=== PATIENT | male | born 1985 | race Caucasian/White ===

== ENCOUNTER 2021-03-21 22:01 | Emergency (ER) | payer MEDICAID ==
[~2021-03-21] VITALS: Ht 182.9 cm; Wt 99.8 kg
[2021-03-21 22:20] VITALS: BP_SYST 140
[2021-03-22] MEDS ORDERED: LIDOCAINE/EPI 1% 1:100000 20 ML VIAL INJ ONE (00:33)
[2021-03-22] MEDS ORDERED: CEFAZOLIN 2 GM IVPB PREMIX 50 ML IV ONE (01:00)
--- NOTE | 2021-03-22 01:00 | NUR ---
Patient is in ER bed 2.
--- NOTE | 2021-03-22 01:05 | NUR ---
Patient stated that he fell on glass and had laceration on his left lower leg. Patient stated that he is in 5/10 pain.
--- NOTE | 2021-03-22 01:25 | NUR ---
MD Brown in to see patient. Performed wound care.
--- NOTE | 2021-03-22 01:30 | NUR ---
# 20 gauge angiocath placed to RAC. Use of asceptic technique. Opsite placed over site. Blood return noted. Blood for lab drawn from site. Flushed with 10 cc of normal saline. No evidence of infiltration noted. Patient tolerated well.
[2021-03-22] MEDS ORDERED: ceFAZolin SODIUM 1 GM VIAL ONE (01:40)
[2021-03-22 02:38] LABS: HEMATOCRIT 36.2 % (36-54); HEMOGLOBIN 11.9 g/dL (14.0-18.0); MEAN CORPUSCULAR HEMOGLOBIN 29 pg (27-31); MEAN CORPUSCULAR HGB CONC 33 % (32-36); MEAN CORPUSCULAR VOLUME 88 fL (79.0-98.0); PLATELET COUNT (AUTO) 246 K/uL (130-430); RED BLOOD CELL COUNT(AUTO) 4.11 MIL/uL (4.2-6.2); RED CELL DISTRIBUTION WIDTH 13.7 % (9.0-15.0); WHITE BLOOD COUNT (AUTO) 9.2 K/uL (4.8-10.8)
[2021-03-22 02:39] LABS: BASOPHILS # (AUTO) 0.1 K/uL (0.0-0.2); BASOPHILS % (AUTO) 0.7 % (0.0-2.0); EOSINOPHILS # (AUTO) 0.4 K/uL (0.0-0.4); EOSINOPHILS % (AUTO) 4.5 % (0.0-4.0); LYMPHOCYTES # (AUTO) 2.7 K/uL (1.0-5.5); MONOCYTES # (AUTO) 0.9 K/uL (0.0-1.0); MONOCYTES % (AUTO) 9.2 % (1.7-9.3); NEUTROPHILS # (AUTO) 5.2 K/uL (1.8-7.7); NEUTROPHILS % (AUTO) 56.6 % (40.0-70.0)
[2021-03-22] MEDS ORDERED: AMOX-426 PO (04:33)
[2021-03-22 04:50] VITALS: BP_SYST 140
--- NOTE | 2021-03-22 04:56 | NUR ---
Patient given written and verbal discharge instructions and verbalizes understanding. ER MD discussed with patient the results and treatment provided. Patient in stable condition. ID arm band removed. IV catheter removed intact and dressing applied, no active bleeding. Patient educated on pain management and to follow up with PMD. Opportunity for questions provided and answered. Medication side effect fact sheet provided.
== END 2021-03-22 04:56 | disposition home or self-care (01) ==
LOC: SED 22:01
DX: S81.812A Laceration without foreign body, left lower leg, initial encounter (principal); W25.XXXA Contact with sharp glass, initial encounter; Y93.89 Activity, other specified; Y92.89 Other specified places as the place of occurrence of the external cause; Y99.8 Other external cause status
CPT/HCPCS: 12034; 36415; 73590; 85025; 96365; 99284; J0690 ×2

== ENCOUNTER 2021-04-05 14:30 | Emergency (ER) | payer MEDICAID ==
[~2021-04-05] VITALS: Ht 182.9 cm; Wt 97.5 kg
[~2021-04-05 14:30] MED LIST: AMOX-426 PO
[2021-04-05 14:57] VITALS: BP_SYST 159
[2021-04-05 15:49] VITALS: BP_SYST 128
== END 2021-04-05 15:47 | disposition home or self-care (01) ==
LOC: SED 14:30
DX: S81.812D Laceration without foreign body, left lower leg, subsequent encounter (principal); Z48.02 Encounter for removal of sutures; W45.8XXD Other foreign body or object entering through skin, subsequent encounter
CPT/HCPCS: 99281